=== PATIENT | male | born 1960 | race Caucasian/White ===

== ENCOUNTER 2019-02-02 06:43 | Day surgery (SDC) | payer OTHER, SELFPAY ==
--- NOTE | 2019-02-02 | PATH_ITS ---
[facility] Accession Number: [id number] . 01 Material submitted: . PART A: SIGMOID COLON POLYPS AT 20 X2 PART B: SIGMOID COLON POLYP AT 15 PART C: RECTAL POLYP . 01 Clinical history: . B: PREVIOUSELY INKED . 02 Diagnosis: A. Sigmoid Colon at 20 cm, Polyps: Fragments of hyperplastic polyp (two polyps removed). . B. Sigmoid Colon at 15 cm, Polyp: Colonic mucosa with slight crypt architectural distortion and hemosiderin-laden macrophages; please see comment. Negative for dysplasia or malignancy. . C. Rectum, Polyp: Hyperplastic polyp. MRV/02/10/2019 . 02 Comment: The findings in part B are mild and nonspecific, and may represent an early hyperplastic polyp or a previous polypectomy site. There is no evidence of cytologic dysplasia or malignancy. . 02 Electronically signed: . Ambrocio Dubois MD, PhD, Pathologist NPI- [id number] . 01 Gross description: . (A) Received in formalin, labeled sigmoid polyps @ 20 x2, are multiple fragments of melendrez-jacques tissue (0.9 x 0.3 x 0.2 cm in aggregate). Entirely submitted in cassette A1. (B) Received in formalin, labeled sigmoid colon polyps at 15 - previously inked, are multiple fragments of melendrez-jacques tissue (0.8 x 0.2 x 0.2 cm in aggregate). Entirely submitted in cassette B1. (C) Received in formalin is a fragment of melendrez-white tissue (0.3 x 0.2 x 0.1 cm). Entirely submitted in cassette C1. ([id number]) /MRV . 02 Pathologist provided ICD-10: K63.5, K62.1 . 02 CPT . 692746, 056935, [id number] Performed at: 01 [facility] [address] [place] [address], [place], [place] [id number] MD Kenn Rodrigues MD Phone: [phone] Performed at: 02 [facility] [place] [address] [place], [place] [id number] MD Libby Sewell MD Phone: [phone]
[2019-02-02 07:05] VITALS: BP 117/61; PULSE 65; RESP 16; TEMP 36.6; O2SAT 97; BMI 19.3
--- NOTE | 2019-02-02 07:43 | PM.HP.1 ---
History of Present Illness Date Patient Seen: 02/02/19 Time Patient Seen: 07:43 Chief complaint: [id number] COLONOSCOPY Narrative: 58-year-old male who is 1 year status post surveillance colonoscopy for screening purpose and was found to have multiple large polyps throughout the entire colon. Fortunately, he had no evidence of any dysplasia or other abnormalities. Several polyps were tubular adenomas. Given the number and size of the polyps he is recommended undergo 1 year surveillance. He presents now for such. On further history today he denies any recent bowel symptoms such as nausea, vomiting, unanticipated weight loss, early satiety, abdominal pain, change in bowel habits, diarrhea, constipation, melena, hematochezia, or bright red blood per rectum. Patient History Medical History Benign prostatic hyperplasia (Acute) Hypercholesterolemia (Acute) Personal history of colonic polyps (Acute) Tobacco abuse (Acute) Surgical History History of colonoscopy (Acute) Social History household members: spouse Family & Social History Social History: household members spouse Meds Home Medications Medication Instructions Recorded Confirmed Type atorvastatin [Lipitor] 20 mg DAILY #0 01/13/18 02/02/19 History tamsulosin [Flomax] 0.4 mg DAILY #0 01/13/18 02/02/19 History Allergies Allergy/AdvReac Type Severity Reaction Status Date / Time No Known Drug Allergies Allergy Verified 01/30/19 14:44 Review of Systems Review of Systems All systems reviewed & are unremarkable except as noted in HPI and below Exam Vital Signs (past 8 hours): - 02/02/19 07:05 Temperature 97.8 F Pulse Rate 65 Respiratory Rate 16 Blood Pressure 117/61 Pulse Oximetry 97 Oxygen Delivery Method Room Air Narrative Exam Narrative: Well-nourished well-developed thin male in no acute distress. Alert oriented x3. is at the bedside for my entire visit Sclera nonicteric Neck is supple Regular rate and rhythm Abdomen soft, nondistended, nontender Extremities show no clubbing or cyanosis Objective Labs Labs: No recent laboratory or radiographic studies for review Assessment & Plan Assessment & Plan narrative: 58-year-old male personal history of multiple colon polyps throughout the entire colon. He presents now for recommended 1 year surveillance. Colonoscopy is once again recommended. Technical details reviewed. Risks, benefits, alternatives were explained. Risks including but not limited to sedation, aspiration, bleeding, pain, missed lesion, incomplete examination, need for further radiographic studies, colonic perforation, need for major abdominal surgery, and all attendant risks of major surgery were explained at length. All questions were answered to his satisfaction, and he voiced understanding. Consent was placed on the chart. We will proceed as above.
--- NOTE | 2019-02-02 07:46 | PM.PREOP ---
Pre-operative Note Interval Note History & Physical reviewed/Exam performed by Physician: Yes Changes to H&P: No H&P completed within 30 days and has changed as indicated here:: Patient seen and examined today. History and physical examination placed on the chart. Obviously, no changes in the last 15 min. Proceed with colonoscopy today as planned. ASA Class (for procedural sedation): II
[2019-02-02] MEDS: MIDAZOLAM 5 MG/5 ML VIAL IV (08:06)
[2019-02-02] MEDS: fentaNYL 250 MCG/5 ML INJ IV (08:07)
--- NOTE | 2019-02-02 08:20 | PM.OP.ENDO ---
Operative Date/Time/Diagnoses Date of procedure: 02/02/19 Time of procedure: 08:20 Pre-op diagnosis: Personal history of multiple colon polyps Post-op diagnosis: other (Multiple colon polyps throughout left colon) Procedure & Clinicians Study performed: 1. Sedation per surgeon 2. Colonoscopy with cold forceps polypectomies Same procedure as scheduled: Yes Indications: 58-year-old male who presented for routine colorectal screening 1 year ago. He was found have multiple polyps throughout the colon at that time. He was recommended to have 1 year surveillance for such. Colonoscopy is once again recommended. Surgeon: Hu Martino Procedure Notes SCOAP/Timeout: Yes Procedure in detail: After obtaining informed consent, the patient was brought to the GI suite and placed in the left lateral decubitus position on the examination table. After placement of appropriate monitors, the patient was given incremental doses of Versed and Fentanyl until an appropriate level of sedation was achieved. A time out was held per SCOAP protocol. A digital rectal examination was performed and did not reveal any masses or obstructing lesions. The colonoscope was gently passed into the patient's anus and the entire colon navigated to the level of the cecum with minimal difficulty. Once in the cecum, the scope was withdrawn being sure to go before and beyond all mucosal folds and prominences and get an excellent examination. The findings are noted above. At the level of the rectal vault, the scope was retroflexed and the internal anal canal was examined. The scope was straightened and air aspirated from the colon. The instrument was removed from the patient's body and the procedure was concluded. The patient was allowed to awaken from sedation without difficulty and taken to the post-anesthesia care unit in good condition. Scope withdrawal time: 13:38 min Sedation minutes: 23 Findings: internal hemorrhoids (Grade 2 only, noninflamed) and polyp Specimen(s): other (1. Sigmoid colon polyps x2 at 20 cm 2. Sigmoid colon polyp at 15 cm at previously inked location 3. Rectal polyp) Complications: none Recommendations: High fiber diet, Will call with biopsy results and Other recommendation (Repeat colonoscopy in 2 years pending biopsy results) Plan for aftercare: 1. Discharge home Follow up: as needed Disposition: PACU
[2019-02-02 08:22] VITALS: BP 113/68; PULSE 66; RESP 11; TEMP 36.4; O2SAT 96
[2019-02-02 08:27] VITALS: BP 120/69; PULSE 62; RESP 11; O2SAT 97
--- NOTE | 2019-02-02 08:30 | SUR.PHASEI ---
BEDSIDE REPORT GIVEN BRAD VAUGHN. TRANSFERRED CARE OF PT TO BRAD VAUGHN IN STABLE CONDITION, VSS.
[2019-02-02 08:44] VITALS: BP 133/84; PULSE 64; RESP 15; TEMP 36.8; O2SAT 96
== END 2019-02-02 08:56 | disposition home or self-care (01) ==
PROVIDERS: Visit Provider Surgery
PROC: 0DJD8ZZ Inspection of Lower Intestinal Tract, Via Natural or Artificial Opening Endoscopic (ICD-10-PCS; CPT 45378; principal; 2019-02-02 07:45)
DX: Z86.010 Personal history of colon polyps (principal); K64.1 Second degree hemorrhoids; D12.5 Benign neoplasm of sigmoid colon; D12.8 Benign neoplasm of rectum; N40.0 Benign prostatic hyperplasia without lower urinary tract symptoms; E78.00 Pure hypercholesterolemia, unspecified; F17.210 Nicotine dependence, cigarettes, uncomplicated
CPT/HCPCS: 45380; 99152; 99153; J2250; J3010